=== PATIENT | female | born 1950 | race Caucasian/White ===

== ENCOUNTER 2017-08-27 15:43 | Emergency (ER) | payer MEDICARE ==
[~2017-08-27] VITALS: Ht 162.6 cm; Wt 66.2 kg
[~2017-08-27 15:43] MED LIST: COLACE100 MG PO; HYDROCODONE-AP1 EAC6 PO; MIRALAX17 GM PO; PRILOSEC 20 MG20 MG PO
[2017-08-27] MEDS ORDERED: CENTRUM SILVER1 EAC4 PO (15:55)
[2017-08-27] MEDS ORDERED: PROZAC20 MG PO (15:56)
[2017-08-27] MEDS ORDERED: IBU600 MG PO (16:45)
[2017-08-27] MEDS ORDERED: MEDROLDOSEPACK PO (16:45)
[2017-08-27] MEDS ORDERED: ZANAFLEX4 MG PO (16:45)
[2017-08-27 16:55] VITALS: BP 145/97
== END 2017-08-27 16:56 | disposition home or self-care (01) ==
LOC: M.ERS 15:43
DX: S39.012A Strain of muscle, fascia and tendon of lower back, initial encounter (principal); Z90.49 Acquired absence of other specified parts of digestive tract; X58.XXXA Exposure to other specified factors, initial encounter; Y93.89 Activity, other specified; Y92.89 Other specified places as the place of occurrence of the external cause; Y99.8 Other external cause status